=== PATIENT | male | born 1950 | race Caucasian/White ===

== ENCOUNTER 2019-05-13 11:09 | Emergency (ER) | payer BC ==
[~2019-05-13 11:09] MED LIST: ASPIRIN/ENTERIC81 MG PO; CINNAMON; GLIMEPIRIDE1 MG PO; GLIMEPIRIDE2 MG PO; HYZAAR1 TAB PO; LOVASTATIN10 M1 PO; METFORMIN HCL750 MG PO; METFORMIN1000 MG PO
== END 2019-05-13 11:14 | disposition left against medical advice (07) | DRG 951 ==
LOC: ED 11:09 → LWOBS 11:14
DX: Z53.21 Procedure and treatment not carried out due to patient leaving prior to being seen by health care provider (principal)